=== PATIENT | female | born 1930 | race Caucasian/White ===

== ENCOUNTER → 2020-11-24 | Outpatient (CLI) | payer MEDICARE, OTHER ==
--- NOTE | 2020-11-24 09:05 | RAD ---
EXAM: Elbow,Right 3 Views INDICATION: 89 years Female, PAIN COMPARISON: None available FINDINGS: 2 views of the left elbow were performed. Diffuse osteopenia. Left elbow olecranon fracture, distracted by at least 1 cm. There is probable impacted fracture of the radial head is well. Fractures may be subacute, as there appears to be likely some subtle periosteal reaction near the radial head and possible early callus formation across the large fracture cleft of the olecranon. No jeronimo joint dislocation. Elbow joint effusion and soft tissue edema. There is a splint in place. No comparison imaging is available. No radiopaque foreign body. IMPRESSION: 1. Left elbow olecranon fracture, distracted by at least 1 cm. 2. Probable impacted radial head fracture. 3. Although no comparison imaging is available, these fractures are favored to be subacute. Correlate with history. Electronically signed by: Audrey Long MD 11/24/2020 9:03 AM [facility]
== END ==
LOC: RAD 07:46
PROVIDERS: ATTEND Orthopaedic Surgery
DX: S52.024A Nondisplaced fracture of olecranon process without intraarticular extension of right ulna, initial encounter for closed fracture (principal)